=== PATIENT | male | born 1970 | race American Indian/Alaskan Native ===

== ENCOUNTER 2016-07-04 10:59 | Emergency (ER) | payer OTHER ==
[2016-07-04 12:09] LABS: Basophils % (Auto) 0.4 % (0.0-1.8); Eosinophils % (Auto) 0.4 % (0.0-4.3); Hematocrit 44.6 % (35.5-45.6); Hemoglobin 14.4 gm/dl (11.8-15.2); Mean Corpuscular HGB Conc 32 % (32-34); Mean Corpuscular Hemoglobin 29 pg (28-32); Mean Corpuscular Volume 88 fl (84-94); Platelet Count 254 K/mm3 (140-440); Red Blood Count 5.05 M/mm3 (3.65-5.03); Red Cell Distribution Width 14.1 % (13.2-15.2); White Blood Count 9.9 K/mm3 (4.5-11.0)
[2016-07-04 12:29] LABS: Alanine Aminotransferase 15 units/L (7-56); Albumin/Globulin Ratio 1.1 %; Alkaline Phosphatase 69 units/L (35-129); Anion Gap 17 mmol/L; BUN/Creatinine Ratio 12.22; Bilirubin,Total 0.4 mg/dL (0.1-1.2); Blood Urea Nitrogen 11 mg/dL (9-20); Calcium 9.2 mg/dL (8.4-10.2); Carbon Dioxide 25 mmol/L (22-30); Chloride 101.8 mmol/L (98-107); Glucose 89 mg/dL (75-100); Lipase 28 units/L (13-60); Potassium 4.1 mmol/L (3.6-5.0); Sodium 140 mmol/L (137-145); Total Protein 7.8 g/dL (6.3-8.2)
[2016-07-04 15:21] LABS: Bilirubin,Urine NEG (Negative); Blood,Urine MOD (Negative); Ketones,Urine TR mg/dL (Negative); Leukocyte Esterase,Urine NEG (Negative); Mucus,Urine 2+ /HPF; Nitrite,Urine NEG (Negative); Protein,Urine <15 mg/dL mg/dL (Negative); Urobilinogen,Urine < 2.0 mg/dL (<2.0)
[2016-07-05] MEDS ORDERED: CATAPRES PO ONE ×2 (00:57→00:59)
[2016-07-05] MEDS ORDERED: ULTRAM PO ONE (00:57)
[2016-07-05] MEDS ORDERED: NACL 0.9% 1000 ML 1,000 ML IV ONE (00:57)
[2016-07-05] MEDS ORDERED: PEPCID IV ONE (00:57)
[2016-07-05] MEDS ORDERED: ZOFRAN IV ONE (00:57)
[2016-07-05] MEDS ORDERED: NACL ONE (02:24)
--- NOTE | 2016-07-05 04:31 | Cat Scan Report ---
FINAL REPORT PROCEDURE: CT ABDOMEN PELVIS W CON TECHNIQUE: Computerized axial tomography of the abdomen and pelvis was performed after the IV injection of iodinated nonionic contrast. HISTORY: epigastric pain, vomiting COMPARISON: 09/11/2014 FINDINGS: Visualized lower thorax: No significant abnormality. Liver: Normal size and attenuation. Spleen: Normal size and attenuation. Gallbladder and biliary system: There are stones identified within the gallbladder lumen. No dilatation of the biliary ductal system. Further evaluation with ultrasound may be appropriate.. Pancreas: Normal. Adrenals: Normal. Kidneys: Both kidneys have normal size. No hydronephrosis. No renal stones or masses.. GI tract: Stomach is normal. The small bowel has a normal caliber. No obstruction, ileus or enteritis. The cecum, and colon are normal. The appendix has a normal caliber. There are 2 calcifications identified within the appendix. These have not changed since prior study. Incidental appendicoliths are noted.. Lymph nodes and mesentery: Normal. Vasculature: Normal. Bladder: Normal. Reproductive organs: Normal. Peritoneum: No free fluid. Musculoskeletal structures: No significant abnormality. Other: None. IMPRESSION: There is no evidence of intestinal or urinary tract obstruction. No ileus or enteritis. Cholelithiasis. Further evaluation with ultrasound may be appropriate.
--- NOTE | 2016-07-05 04:49 | Emergency Department Report ---
ED Abdominal Pain HPI - General Chief Complaint: Abdominal Pain Stated Complaint: ABD PAIN Time Seen by Provider: 07/05/16 00:48 Source: patient Mode of arrival: Ambulatory Limitations: No Limitations - History of Present Illness Initial Comments: 45-year-old male with a past medical history of hypertension presents to the hospital complains of epigastric pain for the past 3 days. Pain is sharp, constant, worse with palpation. No alleviating factors. Pain rated 8/10 in intensity. Patient has had approximately 8-10 episodes of vomiting since sx onset. Denies gross blood but states vomitus is brown at time. Positive diarrhea but that has improved today. Patient has not been able to eat or drink much has not taken his blood pressure medication since symptom onset. He presents with significantly elevated blood pressure but denies headache, chest pain, or blurred vision. No previous abdominal surgery reported. Patient states he does drink alcohol but denies daily use. Severity scale (0 -10): 7 - Related Data Previous Rx's Medication Instructions Recorded Last Taken Type Lisinopril [Zestril TAB] 40 mg PO QDAY #30 tablet 07/18/13 07/06/13 Rx 40 amLODIPine/VALSARTAN [[place] 1 each PO DAILY #90 tablet 09/13/14 Unknown Rx 10-160 mg Tablet] cloNIDine [Catapres] 0.1 mg PO BID #60 tablet 09/13/14 Unknown Rx Famotidine [Pepcid] 20 mg PO BID #60 tablet 07/05/16 Unknown Rx HYDROcodone/APAP 5-325 [[place] 1 each PO Q6HR PRN #20 tablet 07/05/16 Unknown Rx 5-325 mg TAB] Ondansetron [Zofran Odt] 4 mg PO Q8HR PRN #20 tab.rapdis 07/05/16 Unknown Rx Allergies Allergy/AdvReac Type Severity Reaction Status Date / Time No Known Allergies Allergy Verified 06/18/14 09:18 ED Review of Systems ROS: Stated complaint: ABD PAIN Other details as noted in HPI Comment: All other systems reviewed and negative Other: Constitutional: No fevers chills Eyes: No eye pain visual changes ENT: No ear pain or throat pain Neck: Denies pain Respiratory: Denies cough wheezing shortness of breath Cardiovascular: Denies chest pain, palpitations, syncope GI: Denies neck, hematochezia, hematemesis : Denies dysuria Musculoskeletal: Denies back pain Skin: Denies rash Neurologic: Denies headache, numbness, weakness Psychiatric: Denies suicidal ideation, hallucinations ED Past Medical Hx - Past Medical History Previous Medical History?: Yes Hx Hypertension: Yes Hx Congestive Heart Failure: No Hx Diabetes: No Hx Asthma: No Hx COPD: No - Surgical History Past Surgical History?: No - Social History Smoking Status: Current Some Day Smoker Substance Use Type: Alcohol - Medications Home Medications: Home Medications Medication Instructions Recorded Confirmed Last Taken Type Lisinopril [Zestril TAB] 40 mg PO QDAY #30 tablet 07/18/13 06/18/14 07/06/13 Rx 40 amLODIPine/VALSARTAN [[place] 1 each PO DAILY #90 tablet 09/13/14 Unknown Rx 10-160 mg Tablet] cloNIDine [Catapres] 0.1 mg PO BID #60 tablet 09/13/14 Unknown Rx Famotidine [Pepcid] 20 mg PO BID #60 tablet 07/05/16 Unknown Rx HYDROcodone/APAP 5-325 [[place] 1 each PO Q6HR PRN #20 tablet 07/05/16 Unknown Rx 5-325 mg TAB] Ondansetron [Zofran Odt] 4 mg PO Q8HR PRN #20 tab.rapdis 07/05/16 Unknown Rx ED Physical Exam - General Limitations: No Limitations - Other Other exam information: General: No limitations, patient is alert in no acute distress Head exam: Atraumatic, normocephalic Eyes exam: Normal appearance, nonicteric sclera ENT: Moist mucous membrane, normal oropharynx Neck exam: Normal inspection, full range of motion Respiratory exam: Clear to auscultation bilateral, no wheezes, rales, crackles Cardiovascular: Normal rate and rhythm, normal heart sounds Abdomen: Soft, nondistended, epigastric tenderness, with normal bowel sounds, no rebound, or guarding Extremity: Full range of motion normal inspection no deformity Back: Normal Inspection, full range of motion, no tenderness Neurologic: Alert, oriented x3, cranial nerves intact, no motor or sensory deficit Psychiatric: normal affect, normal mood Skin: Warm, dry, intact ED Course Vital Signs 07/04/16 07/05/16 07/05/16 11:15 01:45 05:00 Temperature 98.6 F Pulse Rate 66 52 L 58 L Respiratory 18 Rate Blood Pressure 210/118 208/134 184/119 Blood Pressure [Left] O2 Sat by Pulse 100 Oximetry 07/05/16 05:22 Temperature Pulse Rate 64 Respiratory Rate Blood Pressure Blood Pressure 163/109 [Left] O2 Sat by Pulse Oximetry ED Medical Decision Making - Lab Data Result diagrams: 07/04/16 11:56 07/04/16 11:56 Lab Results 07/04/16 07/04/16 07/04/16 Range/Units 11:56 11:56 18:31 WBC 9.9 (4.5-11.0) K/mm3 RBC 5.05 H (3.65-5.03) M/mm3 Hgb 14.4 (11.8-15.2) gm/dl Hct 44.6 (35.5-45.6) % MCV 88 (84-94) fl MCH 29 (28-32) pg MCHC 32 (32-34) % RDW 14.1 (13.2-15.2) % Plt Count 254 (140-440) K/mm3 Lymph % (Auto) 17.1 (13.4-35.0) % [place] % (Auto) 7.1 (0.0-7.3) % Eos % (Auto) 0.4 (0.0-4.3) % Baso % (Auto) 0.4 (0.0-1.8) % Lymph # 1.7 (1.2-5.4) K/mm3 [place] # 0.7 (0.0-0.8) K/mm3 Eos # 0.0 (0.0-0.4) K/mm3 Baso # 0.0 (0.0-0.1) K/mm3 Seg Neutrophils % 75.0 H (40.0-70.0) % Seg Neutrophils # 7.4 (1.8-7.7) K/mm3 Sodium 140 (137-145) mmol/L Potassium 4.1 (3.6-5.0) mmol/L Chloride 101.8 (98-107) mmol/L Carbon Dioxide 25 (22-30) mmol/L Anion Gap 17 mmol/L BUN 11 (9-20) mg/dL Creatinine 0.9 (0.8-1.5) mg/dL Estimated GFR > 60 ml/min BUN/Creatinine Ratio 12.22 % Glucose 89 (75-100) mg/dL Calcium 9.2 (8.4-10.2) mg/dL Total Bilirubin 0.4 (0.1-1.2) mg/dL AST 13 (5-40) units/L ALT 15 (7-56) units/L Alkaline Phosphatase 69 (35-129) units/L Troponin T < 0.010 (0.00-0.029) ng/mL Total Protein 7.8 (6.3-8.2) g/dL Albumin 4.0 (3.9-5) g/dL Albumin/Globulin Ratio 1.1 % Lipase 28 (13-60) units/L Urine Color (Yellow) Urine Turbidity (Clear) Urine pH (5.0-7.0) Ur Specific [place] (1.003-1.030) Urine Protein (Negative) mg/dL Urine Glucose (UA) (Negative) mg/dL Urine Ketones (Negative) mg/dL Urine Blood (Negative) Urine Nitrite (Negative) Urine Bilirubin (Negative) Urine Urobilinogen (<2.0) mg/dL Ur Leukocyte Esterase (Negative) Urine WBC (Auto) (0.0-6.0) /HPF Urine RBC (Auto) (0.0-6.0) /HPF U Epithel Cells (Auto) (0-13.0) /HPF Urine Mucus /HPF 07/04/16 Range/Units Unknown WBC (4.5-11.0) K/mm3 RBC (3.65-5.03) M/mm3 Hgb (11.8-15.2) gm/dl Hct (35.5-45.6) % MCV (84-94) fl MCH (28-32) pg MCHC (32-34) % RDW (13.2-15.2) % Plt Count (140-440) K/mm3 Lymph % (Auto) (13.4-35.0) % [place] % (Auto) (0.0-7.3) % Eos % (Auto) (0.0-4.3) % Baso % (Auto) (0.0-1.8) % Lymph # (1.2-5.4) K/mm3 [place] # (0.0-0.8) K/mm3 Eos # (0.0-0.4) K/mm3 Baso # (0.0-0.1) K/mm3 Seg Neutrophils % (40.0-70.0) % Seg Neutrophils # (1.8-7.7) K/mm3 Sodium (137-145) mmol/L Potassium (3.6-5.0) mmol/L Chloride (98-107) mmol/L Carbon Dioxide (22-30) mmol/L Anion Gap mmol/L BUN (9-20) mg/dL Creatinine (0.8-1.5) mg/dL Estimated GFR ml/min BUN/Creatinine Ratio % Glucose (75-100) mg/dL Calcium (8.4-10.2) mg/dL Total Bilirubin (0.1-1.2) mg/dL AST (5-40) units/L ALT (7-56) units/L Alkaline Phosphatase (35-129) units/L Troponin T (0.00-0.029) ng/mL Total Protein (6.3-8.2) g/dL Albumin (3.9-5) g/dL Albumin/Globulin Ratio % Lipase (13-60) units/L Urine Color Yellow (Yellow) Urine Turbidity Clear (Clear) Urine pH 5.0 (5.0-7.0) Ur Specific [place] 1.026 (1.003-1.030) Urine Protein <15 mg/dl (Negative) mg/dL Urine Glucose (UA) Neg (Negative) mg/dL Urine Ketones Tr (Negative) mg/dL Urine Blood Mod (Negative) Urine Nitrite Neg (Negative) Urine Bilirubin Neg (Negative) Urine Urobilinogen < 2.0 (<2.0) mg/dL Ur Leukocyte Esterase Neg (Negative) Urine WBC (Auto) 1.0 (0.0-6.0) /HPF Urine RBC (Auto) 8.0 (0.0-6.0) /HPF U Epithel Cells (Auto) < 1.0 (0-13.0) /HPF Urine Mucus 2+ /HPF - EKG Data -: EKG Interpreted by Me (sinus rhythm rate 61 nonspecific T abnormality) - EKG Data When compared to previous EKG there are: no significant change (compared to ) - Medical Decision Making Patient is driving therefore given Pepcid, tramadol, Zofran, and 1 L normal saline in addition to clonidine 0.2 mg. Pt reports that his pain is improving but started to return. Patient is driving home therefore cannot receive anything stronger. No further vomiting in the ED. Patient's blood pressures trending downward after hydralazine. Patient remains asymptomatic secondary to hypertension. He'll be encouraged to continue his current medication regiment when he goes home. Patient states he has blood pressure medicine at home and does not require refill - Differential Diagnosis pancreatitis, gastritis, biliary colic, AAA Critical Care Time: No Critical care attestation.: If time is entered above; I have spent that time in minutes in the direct care of this critically ill patient, excluding procedure time. ED Disposition Clinical Impression: Epigastric pain, Cholelithiasis, Uncontrolled hypertension, Noncompliance with medication regimen, Vomiting Disposition: DISCHARGED TO HOME OR SELFCARE Is pt being admited?: No Does the pt Need Aspirin: No Condition: Stable Instructions: Biliary Colic (ED), Acute Nausea and Vomiting (ED), Hypertension (ED), Acute Abdominal Pain (ED) Additional Instructions: Take the medication as prescribed. Also take your blood pressure medication as prescribed. Return if symptoms worsen. Follow-up with your primary care doctor or the doctor provided. Prescriptions: Famotidine [Pepcid] 20 mg PO BID #60 tablet HYDROcodone/APAP 5-325 [[place] 5-325 mg TAB] 1 each PO Q6HR PRN #20 tablet PRN Reason: Pain Ondansetron [Zofran Odt] 4 mg PO Q8HR PRN #20 tab.rapdis PRN Reason: Nausea And Vomiting Referrals: DIDIER BIGGS MD [Primary Care Provider] - 2-3 Days Time of Disposition: 05:28
[2016-07-05] MEDS ORDERED: APRESOLINE IV ONE (04:56)
[2016-07-05 05:22] VITALS: BP 163/109
== END 2016-07-05 05:50 | disposition home or self-care (01) ==
LOC: ED 10:59
DX: K80.20 Calculus of gallbladder without cholecystitis without obstruction (principal); I10 Essential (primary) hypertension; Z91.14 Patient's other noncompliance with medication regimen; F17.200 Nicotine dependence, unspecified, uncomplicated
CPT/HCPCS: 36415; 74177; 80053; 81001; 83690; 84484; 85025; 93005; 93010; 96361; 96374; 96375; 99284; J0360; J2405; J7030; Q9967